=== PATIENT | female | born 1940 | race Caucasian/White ===

== ENCOUNTER 2020-11-20 14:48 | Emergency (ER) | payer MEDICARE ==
[2020-11-20 15:05] VITALS: TEMP 98
--- NOTE | 2020-11-20 16:11 | ED ---
General Adult HPI - General Chief complaint: Extremity Problem,Nontraumatic Stated complaint: Right Foot Injury Time Seen by Provider: 11/20/20 15:20 Source: patient Mode of arrival: wheelchair Limitations: no limitations - History of Present Illness Initial comments: Vitals are stable. Patient is afebrile. 80-year-old female without any significant past medical history presents to the emergency room for a chief complaint of foot pain. Patient has had bilateral foot pain for the past couple days. Feels like there are nails and her toes. Patient reports that she exactly might be small nails in her toes. Patient states she otherwise feels well. Denies any other complaints.Patient has no other complaints at this time including shortness of breath, chest pain, abdominal pain, nausea or vomiting, headache, or visual changes. - Related Data Previous Rx's Medication Instructions Recorded Carbamide Peroxide [Debrox Otic] 5 drops BOTH EARS BID 4 Days #10 ml 11/20/20 Allergies Allergy/AdvReac Type Severity Reaction Status Date / Time No Known Allergies Allergy Verified 11/20/20 15:05 Review of Systems ROS Statement: Those systems with pertinent positive or pertinent negative responses have been documented in the HPI. ROS Other: All systems not noted in ROS Statement are negative. Past Medical History Past Medical History: No Reported History History of Any Multi-Drug Resistant Organisms: None Reported Past Surgical History: No Surgical Hx Reported Past Psychological History: No Psychological Hx Reported Smoking Status: Former smoker Past Alcohol Use History: None Reported Past Drug Use History: None Reported General Exam - General Exam Comments Initial Comments: Left upper extremity: Patient has a soft tissue mass noted on the left upper arm. There is no erythema or increased warmth. No induration. This is consistent with a lipoma. Radial pulse 2+, capillary refill less than 2 seconds, full range of motion Bilateral feet: DP pulses 2+ bilaterally, capillary refill less than 2 seconds. No erythema edema. No evidence of infection. No open sores. Limitations: no limitations General appearance: alert, in no apparent distress Head exam: Present: atraumatic, normocephalic, normal inspection Eye exam: Present: normal appearance, PERRL, EOMI. Absent: scleral icterus, conjunctival injection, periorbital swelling ENT exam: Present: normal exam, mucous membranes moist. Absent: TM's normal bilaterally (bilat cerumen impaction) Neck exam: Present: normal inspection, full ROM. Absent: tenderness, meningismus, lymphadenopathy Respiratory exam: Present: normal lung sounds bilaterally. Absent: respiratory distress, wheezes, rales, rhonchi, stridor Cardiovascular Exam: Present: regular rate, normal rhythm, normal heart sounds. Absent: systolic murmur, diastolic murmur, rubs, gallop, clicks GI/Abdominal exam: Present: soft, normal bowel sounds. Absent: distended, tenderness, guarding, rebound, rigid Neurological exam: Present: alert Psychiatric exam: Present: normal affect, normal mood Course Vital Signs 11/20/20 15:02 Temperature 98 F Pulse Rate 108 H Respiratory 16 Rate Blood Pressure 144/86 O2 Sat by Pulse 99 Oximetry Medical Decision Making - Medical Decision Making Vitals are stable. Patient initially came in for bilateral foot pain. Patient states there are nails in her feet. Bilat foot exam normal, neurovasc intact. I did call her son Siddharth who states this is her baseline. He is not concerned and states she has been acting completely normally. He also would like us to flush her ears, examine a mass that has been on her arm for months, and give her Covid shot. I discussed with him that we do not have Covid shots through the ER in that the mass on her arm appears to be a lipoma and she will need to see a primary care provider in surgery. I did look in her ears and she has hard dry wax that needs Debrox before flushing. She can follow up with primary care for this. Pain in the feet maybe related to peripheral neuropathy and she should also see primary care for this. I discussed that she needs to return for any worsening symptoms and that he needs to keep a close eye on her this weekend and make sure she is not confused over her baseline. I discussed this case with attending Dr. Freitas who agrees with this assessment and treatment plan. Disposition Clinical Impression: Foot pain, Cerumen impaction, Soft tissue mass Disposition: HOME SELF-CARE Condition: Good Instructions (If sedation given, give patient instructions): Carbamide Peroxide (Into the ear), Lipoma (ED) Additional Instructions: Please take Tylenol for pain. Please use drops to soften earwax for removal. Follow up with primary care provider for full pain, earwax, and the mass of the left arm. Return to the emergency room for any worsening symptoms. Prescriptions: Carbamide Peroxide [Debrox Otic] 5 drops BOTH EARS BID 4 Days #10 ml Is patient prescribed a controlled substance at d/c from ED?: No Referrals: Yamil Leyva [STAFF PHYSICIAN] - 1-2 days Time of Disposition: 16:09
[2020-11-20 16:35] VITALS: RESP 18
[2020-11-20 16:36] VITALS: BP 140/85; PULSE 105
== END 2020-11-20 16:23 | disposition home or self-care (01) ==
LOC: EC 14:48
DX: R22.32 Localized swelling, mass and lump, left upper limb (principal); H61.23 Impacted cerumen, bilateral; M79.671 Pain in right foot; M79.672 Pain in left foot; Z87.891 Personal history of nicotine dependence
CPT/HCPCS: 99283